=== PATIENT | female | born 1975 | race American Indian/Alaskan Native ===

== ENCOUNTER 2017-05-06 03:49 | Emergency (ER) | payer SELFPAY ==
[2017-05-06 04:40] LABS: Bilirubin,Urine NEG (Negative); Blood,Urine MOD (Negative); Color,Urine Yellow (Yellow); HCG Qualitative,Urine Negative (Negative); Mucus,Urine FEW /HPF; Protein,Urine <15 mg/dL mg/dL (Negative); Urobilinogen,Urine < 2.0 mg/dL (<2.0)
--- NOTE | 2017-05-06 07:01 | Cat Scan Report ---
FINAL REPORT EXAM: CT HEAD/BRAIN WO CON HISTORY: MANNING w/ h/o HTN TECHNIQUE: Routine axial imaging was obtained of the brain without IV contrast. FINDINGS: There is acute subarachnoid blood in the basal cisterns and to lesser extent in the sylvian fissures. There is no parenchymal hemorrhage. There is developing obstructive hydrocephalus with dilatation of both temporal horns. There is a small amount of blood in the 4th ventricle. The visualized sinuses are clear. The mastoid air cells are well pneumatized. The calvarium appears intact. IMPRESSION: Acute subarachnoid hemorrhage with blood noted particularly in the basal cisterns, 4th ventricle and to lesser extent in the sylvian fissures. 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 Developing obstructive hydrocephalus as described.
[2017-05-06] MEDS ORDERED: KEPPRA 1,000 MG/NS 0.75% 100ML 1,000 MG/100 ML BAG IV ONE (07:04)
[2017-05-06] MEDS ORDERED: ZOFRAN IV ONE (07:05)
--- NOTE | 2017-05-06 07:16 | Emergency Department Report ---
ED Headache HPI - General Chief Complaint: Headache Stated Complaint: HEADACHE,NECK,BACK PAIN Time Seen by Provider: 05/06/17 07:00 Source: patient Exam Limitations: no limitations - History of Present Illness Initial Comments: 42-year-old female with a past medical history hypertension noncompliant with meds 1 year presents to the hospital complaining of sudden onset of headache that started at 10 AM yesterday. Pain is in the back of the head and neck rated 12/10 on onset and constant. Aggravated by light. Positive associated neck pain that hurts with movement. Positive nausea with vomiting. No blurred vision, focal weakness, focal numbness. She is taking Aleve as needed for pain but denies use of aspirin or anticoagulants. Allergies/Adverse Reactions: Allergies ibuprofen Allergy (Verified 05/06/17 04:09) Anaphylaxis ED Review of Systems ROS: Stated complaint: HEADACHE,NECK,BACK PAIN Other details as noted in HPI Comment: All other systems reviewed and negative Other: Constitutional: No fevers chills Eyes: Denies blurred vision ENT: No ear pain or throat pain Neck:as per hpi Respiratory: Denies cough wheezing shortness of breath Cardiovascular: Denies chest pain, palpitations, syncope GI: Denies abdominal pain, diarrhea : Denies dysuria Musculoskeletal: Denies back pain, joint swelling Skin: Denies rash, lesions, erythema Neurologic: Denies numbness, weakness Psychiatric: Denies suicidal ideation, hallucinations ED Past Medical Hx - Past Medical History Previous Medical History?: No Hx Hypertension: Yes - Surgical History Past Surgical History?: Yes Additional Surgical History: x1 - Social History Smoking Status: Current Every Day Smoker Substance Use Type: None ED Physical Exam - General Limitations: No Limitations - Other Other exam information: General: No limitations, patient is alert in no acute distress Head exam: Atraumatic, normocephalic Eyes exam: Normal appearance, pupils equal reactive to light, extraocular movements intact ENT: Moist mucous membrane, normal oropharynx Neck exam: Normal inspection, full range of motion, tender neck to palpation without rigidity Respiratory exam: Clear to auscultation bilateral, no wheezes, rales, crackles Cardiovascular: Normal rate and rhythm, normal heart sounds Abdomen: Soft, nondistended, and nontender, with normal bowel sounds, no rebound, or guarding Extremity: Full range of motion normal inspection no deformity Back: Normal Inspection, full range of motion, no tenderness Neurologic: Alert, oriented x3, cranial nerves intact, no motor or sensory deficit. GSC 15 Psychiatric: normal affect, normal mood Skin: Warm, dry, intact ED Course Vital Signs 05/06/17 03:51 Temperature 98.4 F Pulse Rate 79 Respiratory 18 Rate Blood Pressure 154/83 O2 Sat by Pulse 95 Oximetry - Consultations Consultation #1: 05/06/17 07:17 case d/w [facility] transfer service awaiting neurosurgeon call back 05/06/17 07:[address] Rider neurosurgeon at [facility] also sheet layer on conference call as well. Recommendations: Amicar 5 g sbp < 150 agree with [facility] ED Medical Decision Making - Radiology Data Radiology results: report reviewed Read by radiologist Acute subarachnoid hemorrhage is blood noted particularly in the basal cisterna' s, fourth ventricle and to lesser extent in the sylvian fissures. 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 Developing obstructive hydrocephalus with dilatation of both temporal horns and a small amount of blood and a fourth ventricle - Medical Decision Making MANNING/SAH Patient treated Amicar, morphine, and Zofran Cardene initiated to maintain systolic blood pressure less than 150 Keppra for seizure prophylaxis Accepted by Dr. Rider neurosurgeon at [facility] as well as neuro intensive Patient's friend and son at bedside and informed He also voices understanding of diagnosis and need for transfer - Differential Diagnosis CVA, ICH, SAH, hypertensive headache Critical Care Time: Yes Critical care time in (mins) excluding proc time.: 35 Critical care attestation.: If time is entered above; I have spent that time in minutes in the direct care of this critically ill patient, excluding procedure time. ED Disposition Clinical Impression: SAH (subarachnoid hemorrhage), HTN (hypertension) Disposition: DC/TX-70 ANOTHER TYPE HLTHCARE Is pt being admited?: No Does the pt Need Aspirin: No Condition: Stable Time of Disposition: 07:31 (accepted by [facility] and awaiting bed assignment) - Assessment Assessment Interval: Baseline - Level of Consciousness 1a. Level of Consciousness: alert - LOC Questions 1b. LOC Questions: answers correctly - LOC Command 1c. LOC Commands: performs tasks correctly - Best Gaze 2. Best Gaze: normal - Visual 3. Visual: no visual loss - Facial Palsy 4. Facial Palsy: normal symmetrical movement - Motor Arm 5b. Motor Arm Right: no drift 5a. Motor Arm Left: no drift - Motor Leg 6a. Motor Leg Left: no drift 6b. Motor Leg Right: no drift - Limb Ataxia 7. Limb Ataxia: absent - Sensory 8. Sensory: normal - Best Language 9. Best Language: no aphasia - Dysarthria 10. Dysarthria: normal - Extinction and Inattention 11. Extinction/Inattention: no abnormality - Scoring Total Score: 0 Stroke Severity: No Stroke Symptoms
[2017-05-06] MEDS ORDERED: MORPHINE IV ONE (07:18)
[2017-05-06 07:36] LABS: Basophils % (Auto) 0.5 % (0.0-1.8); Eosinophils # (Auto) 0.1 K/mm3 (0.0-0.4); Eosinophils % (Auto) 0.7 % (0.0-4.3); Hematocrit 42.2 % (30.3-42.9); Hemoglobin 14.3 gm/dl (10.1-14.3); Lymphocytes # (Auto) 1.5 K/mm3 (1.2-5.4); Lymphocytes % (Auto) 16.6 % (13.4-35.0); Mean Corpuscular HGB Conc 34 % (30-34); Mean Corpuscular Hemoglobin 30 pg (28-32); Mean Corpuscular Volume 87 fl (79-97); Monocytes # (Auto) 0.5 K/mm3 (0.0-0.8); Monocytes % (Auto) 5.6 % (0.0-7.3); Platelet Count 267 K/mm3 (140-440); Red Blood Count 4.84 M/mm3 (3.65-5.03); Red Cell Distribution Width 14.5 % (13.2-15.2)
[2017-05-06 07:50] LABS: BUN/Creatinine Ratio 14; Blood Urea Nitrogen 10 mg/dL (7-17); Calcium 9.3 mg/dL (8.4-10.2); Hemolysis Index 52
[2017-05-06 07:51] LABS: INR 0.95 (0.87-1.13)
[2017-05-06 07:52] LABS: Partial Thromboplastin Time 30.3 Sec. (24.2-36.6)
[2017-05-06] MEDS ORDERED: AMICAR 5,000 MG in NACL 0.9% 100 ML IV ONE (08:00)
[2017-05-06] MEDS ORDERED: CARDENE 50 MG in NACL 0.9% 250ML 230 ML IV SCH (08:00)
[2017-05-06 08:40] VITALS: BP 165/76
== END 2017-05-06 09:07 | disposition other institution (70) ==
LOC: ED 03:49
DX: I60.9 Nontraumatic subarachnoid hemorrhage, unspecified (principal); I10 Essential (primary) hypertension; F17.200 Nicotine dependence, unspecified, uncomplicated
CPT/HCPCS: 36415; 70450; 80048; 81001; 81025; 84703; 85025; 85610; 85730; 86850; 86900; 86901; 87086; 96365; 96368; 96375; 99291; J1953; J2270; J2405; J7050

== ENCOUNTER 2017-07-18 16:23 | Emergency (ER) | payer MEDICAID, OTHER ==
[2017-07-18 16:59] VITALS: BP 173/93
--- NOTE | 2017-07-18 23:08 | Emergency Department Report ---
ED Headache HPI - General Chief Complaint: Headache Stated Complaint: HEADACHE Time Seen by Provider: 07/18/17 22:44 Source: patient - History of Present Illness Initial Comments: Mrs. Wood is a very pleasant 42-year-old female with history of hypertension. In May she was diagnosed in our ER with subarachnoid hemorrhage. She was transferred to [facility]. She was hospitalized for one month. She did have a surgical intervention. Follow-up scheduled on with Neurosurgeon, she required Percocet initially for headaches. She used all the Percocent prescribed to her. Normally Tylenol resolves her headache. However she has more persistent headache since last night. Tylenol did not relieve her headache. Headache is intermittent posterior throbbing. A little bit more persistent than previous headaches. Moderate in severity. Timing/Duration: 24 hours Quality: severe Head Injury Location: occipital Recent Head Trauma: other (In May diagnosed subarachnoid hemorrhage transferred to [place]) Associated Symptoms: denies symptoms Allergies/Adverse Reactions: Allergies ibuprofen Allergy (Verified 05/06/17 04:09) Anaphylaxis ED Review of Systems ROS: Stated complaint: HEADACHE Other details as noted in HPI Comment: All other systems reviewed and negative Constitutional: denies: chills ENT: denies: throat pain Respiratory: denies: cough Cardiovascular: denies: chest pain ED Past Medical Hx - Past Medical History Hx Hypertension: Yes Additional medical history: brain bleed - Surgical History Additional Surgical History: x1 - Social History Smoking Status: Never Smoker Substance Use Type: None ED Physical Exam - General Limitations: No Limitations General appearance: alert, in no apparent distress - Head Head exam: Present: atraumatic, normocephalic - Eye Eye exam: Present: normal appearance - ENT ENT exam: Present: mucous membranes moist - Neck Neck exam: Present: normal inspection - Respiratory Respiratory exam: Present: normal lung sounds bilaterally. Absent: respiratory distress, wheezes, rales, rhonchi - Cardiovascular Cardiovascular Exam: Present: regular rate, normal rhythm, normal heart sounds. Absent: systolic murmur, diastolic murmur, rubs, gallop - GI/Abdominal GI/Abdominal exam: Present: soft, normal bowel sounds. Absent: distended, tenderness, guarding, rebound - Extremities Exam Extremities exam: Present: normal inspection - Back Exam Back exam: Present: normal inspection - Neurological Exam Neurological exam: Present: alert, oriented X3, CN II-XII intact, normal gait. Absent: motor sensory deficit - Psychiatric Psychiatric exam: Present: normal affect, normal mood - Skin Skin exam: Present: warm, dry, intact, normal color. Absent: rash ED Course Vital Signs 07/18/17 16:56 Temperature 98 F Pulse Rate 82 Respiratory 16 Rate Blood Pressure 173/93 O2 Sat by Pulse 96 Oximetry ED Medical Decision Making - Medical Decision Making Mrs. Wood presents with headache after SAH and neurosurgical procedure 2 months ago. She appears well. Understandably she is extremely frustrated that she waited 8 hours in the ED. Regarding CT head images, the images were unable to be sent to to our radiology staff in order to be read. I reviewed the images. I do not see any gross blood. She elected to leave AGAINST MEDICAL ADVICE prior to an official read by radiology. She understandably declined repeat head CT. She is neurologically intact. She has decision-making capability to decline further care.. Critical care attestation.: If time is entered above; I have spent that time in minutes in the direct care of this critically ill patient, excluding procedure time. ED Disposition Clinical Impression: Headache, History of subarachnoid hemorrhage Disposition: - LEFT AGAINST MED ADVICE Is pt being admited?: No Does the pt Need Aspirin: No Condition: Stable Referrals: PRIMARY CARE, [Primary Care Provider] - 3-5 Days Forms: AMA Form Time of Disposition: 00:57
--- NOTE | 2017-07-21 09:21 | Cat Scan Report ---
FINAL REPORT EXAM: CT HEAD/BRAIN WO CON HISTORY: headache COMPARISON: CT of the head performed on 05/06/2017 TECHNIQUE: Multiple contiguous axial images were obtained from the skullbase to the vertex without administration of IV contrast. FINDINGS: There is a tract in the right frontal lobe from prior frontal approach ventricular catheter placement. There is no parenchymal hemorrhage or extra-axial fluid collection. There is no mass or mass effect. There is no acute territorial infarct. The ventricles are midline and are not enlarged. Subarachnoid spaces and basilar cisterns are clear. There is no skull fracture. The paranasal sinuses and mastoid air cells are clear. The bilateral orbits are intact. IMPRESSION: No acute intracranial abnormality.
== END 2017-07-19 00:59 | disposition left against medical advice (07) ==
LOC: ED 16:23
DX: R51 Headache (principal); I10 Essential (primary) hypertension
CPT/HCPCS: 70450

== ENCOUNTER 2018-04-20 13:30 | Emergency (ER) | payer MEDICAID ==
[2018-04-20 14:01] VITALS: BP 118/70
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
[2018-04-20 16:17] LABS: Basophils % (Auto) 0.3 % (0.0-1.8); Eosinophils # (Auto) 0.1 K/mm3 (0.0-0.4); Eosinophils % (Auto) 0.9 % (0.0-4.3); Hematocrit 35.6 % (30.3-42.9); Hemoglobin 11.7 gm/dl (10.1-14.3); Lymphocytes # (Auto) 2.7 K/mm3 (1.2-5.4); Lymphocytes % (Auto) 38.2 % (13.4-35.0); Mean Corpuscular HGB Conc 33 % (30-34); Mean Corpuscular Volume 83 fl (79-97); Monocytes # (Auto) 0.5 K/mm3 (0.0-0.8); Monocytes % (Auto) 7.2 % (0.0-7.3); Platelet Count 323 K/mm3 (140-440); Red Blood Count 4.28 M/mm3 (3.65-5.03); Red Cell Distribution Width 14.4 % (13.2-15.2)
[2018-04-20 16:23] LABS: BUN/Creatinine Ratio 24; Blood Urea Nitrogen 12 mg/dL (7-17); Calcium 9.2 mg/dL (8.4-10.2); Hemolysis Index 6
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
== END 2018-04-20 18:11 | disposition home or self-care (01) ==
LOC: ED 13:30
DX: T24.112A Burn of first degree of left thigh, initial encounter (principal); T24.111A Burn of first degree of right thigh, initial encounter; T21.12XA Burn of first degree of abdominal wall, initial encounter; T31.11 Burns involving 10-19% of body surface with 10-19% third degree burns; I10 Essential (primary) hypertension; Z88.6 Allergy status to analgesic agent; X12.XXXA Contact with other hot fluids, initial encounter; Y93.89 Activity, other specified; Y99.8 Other external cause status; Y92.89 Other specified places as the place of occurrence of the external cause
CPT/HCPCS: 36415; 80048; 85025; 99283

== ENCOUNTER 2018-04-25 16:26 | Emergency (ER) | payer MEDICAID ==
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
[2018-04-25 17:08] LABS: Bilirubin,Urine NEG (Negative); Blood,Urine MOD (Negative); Color,Urine Amber (Yellow); Mucus,Urine FEW /HPF; Urobilinogen,Urine < 2.0 mg/dL (<2.0)
[2018-04-25 17:09] LABS: HCG Qualitative,Urine Negative (Negative)
[2018-04-25 17:10] LABS: WBC,Urine > 182.0 /HPF (0.0-6.0)
[2018-04-25] MEDS ORDERED: NACL 0.9% 1000 ML 1,000 ML IV ONE (18:54)
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
[2018-04-25 20:12] VITALS: BP 123/77
== END 2018-04-25 20:13 | disposition home or self-care (01) ==
LOC: ED 16:26
DX: T21.22XA Burn of second degree of abdominal wall, initial encounter (principal); N30.90 Cystitis, unspecified without hematuria; I10 Essential (primary) hypertension; Z88.6 Allergy status to analgesic agent; Y92.89 Other specified places as the place of occurrence of the external cause
CPT/HCPCS: 81001; 81025; 99283

== ENCOUNTER 2018-05-09 16:02 | Emergency (ER) | payer MEDICAID ==
[2018-05-09] MEDS ORDERED: TYLENOL PO ONE (17:32)
--- NOTE | 2018-05-09 17:32 | Emergency Department Report ---
Chief Complaint: Headache Stated Complaint: FLU SYMPTOMS Time Seen by Provider: 05/09/18 17:31 - HPI History of Present Illness: chills aches weak back pain pmh k stones htn obese hpld gerd rx statin bp/hctz cig none etoh non drugs none no flu shot this year mse completed MSE screening note: Focused history and physical exam performed. Due to findings the following was ordered: ED Disposition for MSE Condition: Stable
[2018-05-09] MEDS ORDERED: TYLENOL ONE (17:36)
[2018-05-09 18:08] LABS: Bacteria,Urine 2+ /HPF (Negative); Bilirubin,Urine NEG (Negative); Blood,Urine MOD (Negative); Color,Urine Yellow (Yellow); Mucus,Urine FEW /HPF; Urobilinogen,Urine < 2.0 mg/dL (<2.0)
[2018-05-09 18:10] LABS: WBC,Urine > 182.0 /HPF (0.0-6.0)
[2018-05-09 18:11] LABS: HCG Qualitative,Urine Negative (Negative)
[2018-05-09 18:29] LABS: Hematocrit 32.4 % (30.3-42.9); Hemoglobin 10.8 gm/dl (10.1-14.3); Mean Corpuscular HGB Conc 33 % (30-34); Mean Corpuscular Volume 81 fl (79-97); Platelet Count 382 K/mm3 (140-440); Red Cell Distribution Width 14.4 % (13.2-15.2)
[2018-05-09 18:37] LABS: BUN/Creatinine Ratio 10; Blood Urea Nitrogen 6 mg/dL (7-17); Calcium 9.3 mg/dL (8.4-10.2); Hemolysis Index 0
[2018-05-09] MEDS ORDERED: ZOFRAN IV ONE (20:59)
[2018-05-09] MEDS ORDERED: MORPHINE IV ONE (20:59)
--- NOTE | 2018-05-09 21:00 | Emergency Department Report ---
ED General Adult HPI - General Chief complaint: Headache Stated complaint: FLU SYMPTOMS Time Seen by Provider: 05/09/18 17:31 Source: patient, family Mode of arrival: Ambulatory Limitations: No Limitations - History of Present Illness Initial comments: Pt is a 43 yo female who presents with c/o dysuria that began this morning. She has associated bilateral lower back pain, suprapubic pressure, fever, and nausea. The patient states she was evaluated in the ED for similar sx and was diagnosed with a UTI on 04/25 and treated with keflex. She states she completed the medication as prescribed. The patient denies any emesis. She is able to tolerate PO intake. She has a hx of kidney stones in 2012 but did not see a urologist. Severity scale (0 -10): 8 - Related Data Previous Rx's Medication Instructions Recorded Last Taken Type Ciprofloxacin HCl [Ciprofloxacin 500 mg PO BID 7 Days #14 tablet 05/10/18 Unknown Rx TAB] Phenazopyridine [Pyridium] 100 mg PO TID #9 tab 05/10/18 Unknown Rx Promethazine [Phenergan TAB] 25 mg PO Q8HR PRN #14 tab 05/10/18 Unknown Rx Allergies Allergy/AdvReac Type Severity Reaction Status Date / Time ibuprofen Allergy Anaphylaxis Verified 05/06/17 04:09 ED Review of Systems ROS: Stated complaint: FLU SYMPTOMS Other details as noted in HPI Comment: All other systems reviewed and negative ED Past Medical Hx - Past Medical History Previous Medical History?: Yes Hx Hypertension: Yes Additional medical history: brain bleed - Surgical History Past Surgical History?: Yes Additional Surgical History: x1 - Social History Smoking Status: Never Smoker - Medications Home Medications: Home Medications Medication Instructions Recorded Confirmed Last Taken Type Ciprofloxacin HCl [Ciprofloxacin 500 mg PO BID 7 Days #14 tablet 05/10/18 Unknown Rx TAB] Phenazopyridine [Pyridium] 100 mg PO TID #9 tab 05/10/18 Unknown Rx Promethazine [Phenergan TAB] 25 mg PO Q8HR PRN #14 tab 05/10/18 Unknown Rx ED Physical Exam - General Limitations: No Limitations General appearance: alert, in no apparent distress - Head Head exam: Present: atraumatic, normocephalic - Eye Eye exam: Present: normal appearance - ENT ENT exam: Present: mucous membranes moist - Respiratory Respiratory exam: Present: normal lung sounds bilaterally. Absent: respiratory distress, wheezes, rales, rhonchi, stridor, chest wall tenderness, accessory muscle use, decreased breath sounds - Cardiovascular Cardiovascular Exam: Present: regular rate, normal rhythm, normal heart sounds. Absent: systolic murmur, rubs, gallop - GI/Abdominal GI/Abdominal exam: Present: soft, normal bowel sounds. Absent: distended, tenderness, guarding, rebound, rigid - Back Exam Back exam: Present: CVA tenderness (R), CVA tenderness (L) - Neurological Exam Neurological exam: Present: alert, oriented X3 - Psychiatric Psychiatric exam: Present: normal affect, normal mood - Skin Skin exam: Present: warm, dry, intact ED Course Vital Signs 05/09/18 05/09/18 05/10/18 17:31 21:38 00:32 Temperature 101.8 F H 98.9 F Pulse Rate 73 89 Respiratory 16 18 16 Rate Blood Pressure 105/60 Blood Pressure 138/68 [Left] O2 Sat by Pulse 98 100 Oximetry ED Medical Decision Making - Lab Data Result diagrams: 05/09/18 18:10 05/09/18 18:10 Laboratory Results - last 24 hr 05/09/18 05/09/18 05/09/18 17:37 17:45 18:10 WBC 11.0 RBC 4.00 Hgb 10.8 Hct 32.4 MCV 81 MCH 27 L MCHC 33 RDW 14.4 Plt Count 382 Sodium Potassium Chloride Carbon Dioxide Anion Gap BUN Creatinine Estimated GFR BUN/Creatinine Ratio Glucose Calcium Urine Color Yellow Urine Turbidity Cloudy Urine pH 6.0 Ur Specific [place] 1.012 Urine Protein 100 mg/dl Urine Glucose (UA) Neg Urine Ketones Tr Urine Blood Mod Urine Nitrite Neg Urine Bilirubin Neg Urine Urobilinogen < 2.0 Ur Leukocyte Esterase Lg Urine WBC (Auto) > 182.0 H Urine RBC (Auto) 8.0 U Epithel Cells (Auto) 15.0 H Urine Bacteria (Auto) 2+ Urine WBC Clumps 2+ Urine Mucus Few Urine HCG, Qual Negative Influenza A (Rapid) Negative Influenza B (Rapid) Negative 05/09/18 18:10 WBC RBC Hgb Hct MCV MCH MCHC RDW Plt Count Sodium 139 Potassium 3.3 L Chloride 97.8 L Carbon Dioxide 27 Anion Gap 18 BUN 6 L Creatinine 0.6 L Estimated GFR > 60 BUN/Creatinine Ratio 10 Glucose 125 H Calcium 9.3 Urine Color Urine Turbidity Urine pH Ur Specific [place] Urine Protein Urine Glucose (UA) Urine Ketones Urine Blood Urine Nitrite Urine Bilirubin Urine Urobilinogen Ur Leukocyte Esterase Urine WBC (Auto) Urine RBC (Auto) U Epithel Cells (Auto) Urine Bacteria (Auto) Urine WBC Clumps Urine Mucus Urine HCG, Qual Influenza A (Rapid) Influenza B (Rapid) - Radiology Data Radiology results: report reviewed PROCEDURE: CT ABDOMEN PELVIS WO CON TECHNIQUE: Computerized axial tomography of the abdomen and pelvis was performed without intravenous contrast. This study is performed without intravascular contrast material and its sensitivity for abdominal and pelvic pathology, including neoplasms, inflammation, abscess, free fluid, thrombosis, arterial dissection and infarction, is reduced compared with a contrast enhanced study. CT DOSE LENGTH PRODUCT: mGycm HISTORY: bilateral flank pain COMPARISONS: None . FINDINGS: Visualized lower thorax: No significant abnormality. Liver: Normal size and attenuation. Spleen: Normal size and attenuation. Gallbladder and biliary system: There is cholelithiasis. There are no signs of cholecystitis. There is no biliary ductal dilatation.. Pancreas: Normal. Adrenals: Normal. Kidneys: There are tiny bilateral kidney stones. There are no ureteral stones. There is no hydronephrosis. There is right perinephric induration which could be evidence of UTI.. GI tract: There is no bowel obstruction, colitis or enteritis. The appendix is normal. . Lymph nodes and mesentery: Normal. Vasculature: Normal.. Bladder: Normal. Reproductive organs: Uterus is prominent.. There are probable fibroids. Peritoneum: There is no ascites, free air, abscess or adenopathy.. Musculoskeletal structures: No significant abnormality. IMPRESSION: There is cholelithiasis. There are no signs of cholecystitis. There is no biliary ductal dilatation. There are tiny bilateral kidney stones. There are no ureteral stones. There is no hydronephrosis. There is right perinephric induration which could be evidence of UTI. There is no bowel obstruction, colitis or enteritis. The appendix is normal. Uterus is prominent.. There are probable fibroids. There is no ascites, free air, abscess or adenopathy.. This document is electronically signed by Edgar Islas MD., May 09 2018 11:53:13 PM ET - Medical Decision Making Pt is a 43 yo female who presents to the ED for dysuria, suprapubic pressure, fever, and bilateral flank pain. Urine with WBCs. CT abd/pelvis shows bilateral nonobstructing stones in the kidneys, cholelithiasis without cholecystitis, and right sided pyelonephritis. Pt is well appearing and able to tolerate PO intake. VSS. Pt is a candidate for outpatient pyelo tx. Will have pt follow up with urology and PCP in the next 2-3 days. Discussed specific instructions for return to ED if new or worsening symptoms. Critical care attestation.: If time is entered above; I have spent that time in minutes in the direct care of this critically ill patient, excluding procedure time. ED Disposition Clinical Impression: Pyelonephritis, Nephrolithiasis Cholelithiasis Qualifiers: Cholelithiasis location: gallbladder Cholecystitis presence: without cholecystitis Biliary obstruction: without biliary obstruction Qualified Code(s): K80.20 - Calculus of gallbladder without cholecystitis without obstruction Disposition: TO HOME OR SELFCARE Is pt being admited?: No Does the pt Need Aspirin: No Condition: Stable Instructions: Cholelithiasis (ED), Kidney Stones (ED), Acute Pyelonephritis (ED) Additional Instructions: Follow up with primary care doctor in the next 2-3 days. Follow up with urology for kidney stones. If any new or worsening symptoms return to the emergency room. Prescriptions: Ciprofloxacin HCl [Ciprofloxacin TAB] 500 mg PO BID 7 Days #14 tablet Promethazine [Phenergan TAB] 25 mg PO Q8HR PRN #14 tab PRN Reason: Nausea Phenazopyridine [Pyridium] 100 mg PO TID #9 tab Referrals: OFELIA LEMA [Primary Care Provider] - 3-5 Days TOMY PARK MD [Staff Physician] - 3-5 Days Time of Disposition: 00:02 Print Language: CITIZEN OF [place]
[2018-05-09] MEDS ORDERED: ROCEPHIN/NS 1 GM/50 ML 1 GM/50 ML BAG IV ONE (21:02)
--- NOTE | 2018-05-09 23:55 | Cat Scan Report ---
PROCEDURE: CT ABDOMEN PELVIS WO CON TECHNIQUE: Computerized axial tomography of the abdomen and pelvis was performed without intravenous contrast. This study is performed without intravascular contrast material and its sensitivity for ab dominal and pelvic pathology, including neoplasms, inflammation, abscess, free fluid, thrombosis, art erial dissection and infarction, is reduced compared with a contrast enhanced study. CT DOSE LENGTH PRODUCT: mGycm HISTORY: bilateral flank pain COMPARISONS: None . FINDINGS: Visualized lower thorax: No significant abnormality. Liver: Normal size and attenuation. Spleen: Normal size and attenuation. Gallbladder and biliary system: There is cholelithiasis. There are no signs of cholecystitis. There i s no biliary ductal dilatation.. Pancreas: Normal. Adrenals: Normal. Kidneys: There are tiny bilateral kidney stones. There are no ureteral stones. There is no hydronephr osis. There is right perinephric induration which could be evidence of UTI.. GI tract: There is no bowel obstruction, colitis or enteritis. The appendix is normal. . Lymph nodes and mesentery: Normal. Vasculature: Normal.. Bladder: Normal. Reproductive organs: Uterus is prominent.. There are probable fibroids. Peritoneum: There is no ascites, free air, abscess or adenopathy.. Musculoskeletal structures: No significant abnormality. IMPRESSION: There is cholelithiasis. There are no signs of cholecystitis. There is no biliary ductal dilatation. There are tiny bilateral kidney stones. There are no ureteral stones. There is no hydronephrosis. The re is right perinephric induration which could be evidence of UTI. There is no bowel obstruction, colitis or enteritis. The appendix is normal. Uterus is prominent.. There are probable fibroids. There is no ascites, free air, abscess or adenopathy.. This document is electronically signed by Edgar Islas MD., May 09 2018 11:53:13 PM ET
[2018-05-10 00:33] VITALS: BP 138/68
== END 2018-05-10 00:32 | disposition home or self-care (01) ==
LOC: ED 16:02
DX: N12 Tubulo-interstitial nephritis, not specified as acute or chronic (principal); N20.0 Calculus of kidney; K80.20 Calculus of gallbladder without cholecystitis without obstruction; I10 Essential (primary) hypertension; Z88.5 Allergy status to narcotic agent
CPT/HCPCS: 36415; 74176; 80048; 81001; 81025; 85027; 87400; 96365; 96375; 99284; J0696; J2270; J2405

== ENCOUNTER 2018-05-18 11:34 | Outpatient (CLI) | payer MEDICAID ==
[2018-05-18 12:28] LABS: Bilirubin,Urine NEG (Negative); Blood,Urine NEG (Negative); Color,Urine Straw (Yellow); Mucus,Urine FEW /HPF; Protein,Urine <15 mg/dL mg/dL (Negative); Urobilinogen,Urine < 2.0 mg/dL (<2.0)
== END 2018-05-18 11:35 | disposition home or self-care (01) ==
LOC: LAB 11:34
PROVIDERS: ATTEND Internal Medicine
DX: N39.0 Urinary tract infection, site not specified (principal); I10 Essential (primary) hypertension
CPT/HCPCS: 81001

== ENCOUNTER 2018-08-21 10:26 | Outpatient (CLI) | payer MEDICAID ==
[2018-08-21 11:10] LABS: Hematocrit 30.9 % (30.3-42.9); Hemoglobin 10.1 gm/dl (10.1-14.3); Mean Corpuscular HGB Conc 33 % (30-34); Mean Corpuscular Volume 76 fl (79-97); Platelet Count 364 K/mm3 (140-440); Red Blood Count 4.04 M/mm3 (3.65-5.03); Red Cell Distribution Width 15.4 % (13.2-15.2)
[2018-08-21 12:27] LABS: Alanine Aminotransferase 11 units/L (7-56); Albumin 4.5 g/dL (3.9-5); BUN/Creatinine Ratio 15; Blood Urea Nitrogen 9 mg/dL (7-17); Calcium 9.4 mg/dL (8.4-10.2); Chol/HDL Ratio 3.07 %; HDL Cholesterol 41 mg/dL (40-59); Hemolysis Index 3; LDL Cholesterol,Direct 73 mg/dL (50-130)
== END 2018-08-21 10:27 | disposition home or self-care (01) ==
LOC: LAB 10:26
PROVIDERS: ATTEND Internal Medicine
DX: Z13.220 Encounter for screening for lipoid disorders (principal); E78.00 Pure hypercholesterolemia, unspecified; R73.9 Hyperglycemia, unspecified; I10 Essential (primary) hypertension
CPT/HCPCS: 36415; 80053; 80061; 82607; 83036; 85027

== ENCOUNTER 2018-09-18 08:59 | Outpatient (CLI) | payer MEDICAID ==
--- NOTE | 2018-09-18 13:05 | Ultrasound Report ---
DIGITAL DIAGNOSTIC MAMMOGRAM 09/18/2018 RIGHT BREAST ULTRASOUND INDICATION: Questionable architectural distortion right breast upper outer quadrant posterior depth, questionable developing density middle depth central CC view on screening mammography TECHNIQUE: Digital right mammographic imaging was performed. Spot compression views were obtained. L imited ultrasound was performed. COMPARISON: Mammogram dated 02/11/2018 and 07/06/2015 FINDINGS: Breast Density: The breasts are heterogeneously dense, which may obscure small masses. The focal asymmetric density seen on screening mammography does not persist on additional imaging. Qu estionable architectural distortion in the posterior depth right upper outer quadrant does not persis t on spot compression views. Ultrasound Findings: Targeted sonographic evaluation was performed on the area of interest. Imaging w as performed through the right breast upper outer quadrant. In the area of questionable architectural distortion 10 to 11:00 position posterior depth, normal fib roglandular tissue is seen without cysts or solid nodules. Incidental note is made of a benign-appearing fat lobule in the 9:00 position measuring 3.5 cm. There is no suspicious mammographic correlate. This is considered a benign finding. An additional incidental finding of a complicated cyst versus solid nodule is noted in the 9:00 posit ion 6 cm from the nipple, posterior depth measuring 6 mm. There is no mammographic correlate. IMPRESSION: BI-RADS Category 3: Probably Benign. Return to routine screening mammography is recommended in one year. Six-month follow-up ultrasound is recommended to assure stability or resolution of the complic ated cyst versus solid nodule in the 9:00 position 6 cm from nipple. A "normal" or negative report should not discourage follow up or biopsy of a clinically significant f inding. A written summary of these findings will be mailed to the patient. The patient will be entered into a mammography reporting system which will generate a reminder letter for the patient's next appointmen t at the appropriate interval. According to the [employer], yearly mammograms are recommended starting at age 40 and continuing as long as a woman is in good health. Breast MRI is recommended for women with an jose m roximately 20-25% or greater lifetime risk of breast cancer, including women with a strong family his tory of breast or ovarian cancer and women who have been treated for Hodgkin's disease. Signer Name: Oneyda Tapia MD Signed: 09/18/2018 1:01 PM Workstation Name: [id number]
--- NOTE | 2018-09-18 16:46 | Ultrasound Report ---
Renal ultrasound INDICATION: Nephrolithiasis. Calculus of kidney FINDINGS: Both kidneys measure 12 cm in length without hydronephrosis. There are several small echoge kyle foci throughout both collecting systems consistent with tiny nonobstructive stones. Urinary bladd er is unremarkable IMPRESSION: Bilateral nephrolithiasis without hydronephrosis, as above. Signer Name: Tavo Richey MD Signed: 09/18/2018 4:42 PM Workstation Name: [id number]
== END 2018-09-18 09:00 | disposition home or self-care (01) ==
LOC: MAMMO 08:59
PROVIDERS: ATTEND Internal Medicine
DX: N20.0 Calculus of kidney (principal); R92.8 Other abnormal and inconclusive findings on diagnostic imaging of breast; I10 Essential (primary) hypertension
CPT/HCPCS: 76770

== ENCOUNTER 2018-12-22 10:59 | Emergency (ER) | payer MEDICAID, OTHER ==
--- NOTE | 2018-12-22 11:34 | Emergency Department Report ---
HPI - General Chief Complaint: Back Pain/Injury Time Seen by Provider: 12/22/18 11:17 - HPI HPI: Room 35 The patient is a 43-year-old female presenting with a chief complaint of right flank pain. Patient states she's had pain in the right flank. Past 1.5 days. Patient states the pain increases with movement. Patient describes the pain as sharp and constant in nature. Patient denies nausea/vomiting or dysuria. Patient denies hematuria or recent trauma. Patient denies history of fever. Patient states she's had this same pain in the past has been attributed to a "bulging disc" in her back Location: [See above] Duration: [See above] Quality: [See above] Severity: [See above] Timing: [See above] Context: [See above] Modifying factors: [See above] Associated signs and symptoms: [see above] ED Past Medical Hx - Past Medical History Previous Medical History?: Yes Hx Hypertension: Yes Additional medical history: brain bleed (2018). bulging disc - Surgical History Past Surgical History?: Yes Additional Surgical History: x1 - Family History Family history: no significant - Social History Smoking Status: Never Smoker Substance Use Type: None - Medications Home Medications: Home Medications Medication Instructions Recorded Confirmed Last Taken Type Ciprofloxacin HCl [Ciprofloxacin 500 mg PO BID 7 Days #14 tablet 05/10/18 Unknown Rx TAB] Phenazopyridine [Pyridium] 100 mg PO TID #9 tab 05/10/18 Unknown Rx Promethazine [Phenergan TAB] 25 mg PO Q8HR PRN #14 tab 05/10/18 Unknown Rx Cyclobenzaprine [Flexeril] 10 mg PO TID PRN #10 tablet 12/22/18 Unknown Rx HYDROcodone/APAP 5-325 [[place] 1 - 2 each PO Q6HR PRN #10 tablet 12/22/18 Unknown Rx 5/325] Sulfamethoxazole/Trimethoprim 1 each PO BID #6 tablet 12/22/18 Unknown Rx [Bactrim DS TAB] ED Review of Systems ROS: Stated complaint: BACK PAIN Other details as noted in HPI Constitutional: no symptoms reported Eyes: denies: eye pain ENT: denies: throat pain Respiratory: no symptoms reported Cardiovascular: denies: chest pain Endocrine: no symptoms reported Gastrointestinal: denies: nausea, vomiting Genitourinary: denies: dysuria, hematuria Musculoskeletal: back pain Neurological: denies: headache Physical Exam - Physical Exam Vital Signs: Vital Signs 12/22/18 11:03 Temperature 99.9 F H Pulse Rate 85 Respiratory 18 Rate Blood Pressure 135/67 O2 Sat by Pulse 93 Oximetry Physical Exam: GENERAL: The patient is well-developed well-nourished female sitting in chair not appearing to be in acute distress. [] HEENT: Normocephalic. Atraumatic. Extraocular motions are intact. Patient has moist mucous membranes. NECK: Supple. Trachea midline CHEST/LUNGS: Clear to auscultation. There is no respiratory distress noted. HEART/CARDIOVASCULAR: Regular. There is no tachycardia. There is no gallop rub or murmur. ABDOMEN: Abdomen is soft, nontender. Patient has normal bowel sounds. There is no abdominal distention. SKIN: There is no rash. There is no edema. There is no diaphoresis. NEURO: The patient is awake, alert, and oriented. The patient is cooperative. The patient has no focal neurologic deficits. The patient has normal speech MUSCULOSKELETAL: There is no evidence of acute injury. ED Course Vital Signs 12/22/18 11:03 Temperature 99.9 F H Pulse Rate 85 Respiratory 18 Rate Blood Pressure 135/67 O2 Sat by Pulse 93 Oximetry ED Medical Decision Making - Radiology Data Radiology results: report reviewed (CT abdomen and pelvis), image reviewed (CT abdomen and pelvis) - Differential Diagnosis lumbar radiculopathy, renal colic, pyelonephritis Critical care attestation.: If time is entered above; I have spent that time in minutes in the direct care of this critically ill patient, excluding procedure time. ED Disposition Clinical Impression: Right flank pain, UTI (urinary tract infection) Disposition: - TO HOME OR SELFCARE Is pt being admited?: No Does the pt Need Aspirin: No Condition: Stable Instructions: Back Pain (ED) Additional Instructions: Return to the emergency department should you develop worsening symptoms, inability to tolerate food or liquids, high fever or any other concerns Prescriptions: Sulfamethoxazole/Trimethoprim [Bactrim DS TAB] 1 each PO BID #6 tablet Cyclobenzaprine [Flexeril] 10 mg PO TID PRN #10 tablet PRN Reason: Muscle Spasm HYDROcodone/APAP 5-325 [[place] 5/325] 1 - 2 each PO Q6HR PRN #10 tablet PRN Reason: Pain Referrals: DICRISTINA,ROULA, MD [Primary Care Provider] - 3-5 Days DUNG PIPER MD [Staff Physician] - 3-5 Days Time of Disposition: 15:45
[2018-12-22 13:01] LABS: HCG Qualitative,Urine Negative (Negative)
[2018-12-22 13:04] LABS: Bilirubin,Urine NEG (Negative); Blood,Urine LG (Negative); Color,Urine Red (Yellow); Urobilinogen,Urine < 2.0 mg/dL (<2.0)
[2018-12-22 13:05] LABS: RBC,Urine > 182.0 /HPF (0.0-6.0)
--- NOTE | 2018-12-22 15:31 | Cat Scan Report ---
CT ABDOMEN AND PELVIS WITHOUT CONTRAST HISTORY: right flank pain COMPARISON: 05/09/2018 TECHNIQUE: Axial CT images were obtained through the abdomen and pelvis without IV contrast. Sagittal and coronal reformatted images. All CT scans at this location are performed using CT dose reduction for ALARA by means of automated exposure control. FINDINGS: CT ABDOMEN: Lung Bases: Clear. Liver: No significant abnormality. Biliary: Numerous tiny partially calcified stones are noted. No biliary dilatation or inflammation. Spleen: No significant abnormality. Unenlarged. Pancreas: No significant abnormality. Adrenals: No significant abnormality. Kidneys: Scattered bilateral renal calyceal stones are again 5, right greater than left. No ureteral stones or hydronephrosis. Lymphatics: No lymphadenopathy. Vasculature: No significant abnormality. Bowel/Peritoneum: No significant abnormality. No free air. No free fluid. The appendix is not confide ntly identified. CT PELVIS: : Normal bladder and distal ureters. The uterus is mildly enlarged with suggestion of uterine fibro ids. No adnexal abnormality. Osseous Structures: No significant abnormality. Additional Findings: None IMPRESSION: Bilateral nephrolithiasis, right greater than left. No ureteral stones or hydronephrosis. Cholelithiasis. Uterine fibroid disease. Signer Name: Johnnie Bush Jr, MD Signed: 12/22/2018 3:27 PM Workstation Name: [id number]
[2018-12-22 16:21] VITALS: BP 125/64
== END 2018-12-22 16:20 | disposition home or self-care (01) ==
LOC: ED 10:59
DX: N39.0 Urinary tract infection, site not specified (principal); I10 Essential (primary) hypertension; Z79.899 Other long term (current) drug therapy
CPT/HCPCS: 74176; 81001; 81025

== ENCOUNTER 2020-08-10 10:19 | Outpatient (CLI) | payer MEDICAID ==
--- NOTE | 2020-08-10 12:59 | Mammography Report ---
DIGITAL SCREENING MAMMOGRAM WITH CAD, 08/10/2020 CLINICAL INFORMATION / INDICATION: Routine screening TECHNIQUE: Digital bilateral 2D mammography was obtained in the craniocaudal and mediolateral obliqu e projections. This examination was interpreted with the benefit of Computer-Aided Detection analysis . COMPARISON: 02/11/2018 FINDINGS: Breast Density: The breasts are heterogeneously dense, which may obscure small masses. No dominant mass, suspicious calcifications, or architectural distortion in the left breast. A new ovoid 9 mm density is seen in the posterior depth of the right breast at 9:00, approximately 10 cm from the nipple. IMPRESSION: New right density Follow up recommendation: Right breast ultrasound BI-RADS Category 0: Incomplete. Needs additional imaging evaluation and/or prior mammograms for nasrin silveron. A "normal" or negative report should not discourage follow up or biopsy of a clinically significant f inding. A written summary of these findings will be mailed to the patient. The patient will be entered into a mammography reporting system which will generate a reminder letter for the patient's next appointmen t at the appropriate interval. The [employer] recommends yearly mammograms starting at age 40 and continuing as l munir as a woman is in good health. Breast MRI is recommended for women with an approximate 20-25% or greater lifetime risk of breast cancer, including women with a strong family history of breast or ova cristina cancer or who have been treated for Hodgkin's disease. Signer Name: Karlo Loja MD Signed: 08/10/2020 12:55 PM Workstation Name: [email or web address]
== END 2020-08-10 10:20 | disposition home or self-care (01) ==
LOC: MAMMO 10:19
PROVIDERS: ATTEND Internal Medicine
DX: Z12.31 Encounter for screening mammogram for malignant neoplasm of breast (principal)
CPT/HCPCS: 77067

== ENCOUNTER 2020-10-05 10:18 | Outpatient (CLI) | payer MEDICAID ==
--- NOTE | 2020-10-05 11:03 | Ultrasound Report ---
ULTRASOUND BREAST LEFT LIMITED, 10/05/2020 CLINICAL INFORMATION / INDICATION: Abnormal screening mammogram. Screening recall of the right breast for new density. TECHNIQUE: Targeted ultrasound evaluation was performed of the area of interest. COMPARISON: Screening mammogram, 08/10/2020 FINDINGS: Sonographic evaluation of the right breast demonstrates an oval circumscribed hypoechoic nodule at th e 9:00 position 10 cm from the nipple measuring 0.8 x 0.5 cm. There is no associated vascularity. Thi s corresponds to the density seen on the mammogram. Incidentally noted is a round mixed echogenic nodule at the 9:00 position 10 cm from the nipple measu ring 0.3 x 0.3 cm. There is no associated vascularity. No suspicious solid mass or shadowing is visualized. IMPRESSION: 1. Two circumscribed right breast nodules as described above which most likely represent mildly compl icated cysts. A six-month follow-up right breast ultrasound is recommended to confirm stability. Follow up recommendation: Short term follow up in 6 months. BI-RADS Category 3: Probably Benign. Followup in 6 months. A normal or "negative" report should not preclude biopsy or follow-up of a clinically suspicious find ing. Signer Name: Lyly Haile MD Signed: 10/05/2020 10:58 AM Workstation Name: [id number]
== END 2020-10-05 10:19 | disposition home or self-care (01) ==
LOC: US 10:18
PROVIDERS: ATTEND Internal Medicine
DX: N63.11 Unspecified lump in the right breast, upper outer quadrant (principal)

== ENCOUNTER 2021-11-29 11:06 | Outpatient (CLI) | payer MEDICAID ==
--- NOTE | 2021-11-29 14:50 | XRay Report ---
XR spine lumbosacral 2-3V INDICATION / CLINICAL INFORMATION: CHRONIC PAIN. COMPARISON: None available. FINDINGS: BONES/JOINT(S): No acute fracture or subluxation. Mild generalized spondylosis. No focal bone erosion s or focal osteopenia to suggest inflammatory arthropathy. SOFT TISSUES: No significant abnormality. ADDITIONAL FINDINGS: None. Signer Name: Yeyo More MD Signed: 11/29/2021 2:46 PM Workstation Name: [id number]
--- NOTE | 2021-12-02 14:43 | Mammography Report ---
DIGITAL SCREENING MAMMOGRAM WITH CAD, 11/29/2021 CLINICAL INFORMATION / INDICATION: Routine screening mammography. TECHNIQUE: Digital bilateral 2D mammography was obtained in the craniocaudal and mediolateral oblique projections. This examination was interpreted with the benefit of Computer-Aided Detection analysis. COMPARISON: 02/11/2018 through 08/10/2020. FINDINGS: Breast Density: There are scattered areas of fibroglandular density. No dominant mass, suspicious calcifications, or architectural distortion in either breast. IMPRESSION: No mammographic evidence of malignancy. Follow up recommendation: Routine yearly screening mammogram. BI-RADS Category 1: NEGATIVE A "normal" or negative report should not discourage follow up or biopsy of a clinically significant f inding. A written summary of these findings will be mailed to the patient. The patient will be entered into a mammography reporting system which will generate a reminder letter for the patient's next appointmen t at the appropriate interval. The [employer] recommends yearly mammograms starting at age 40 and continuing as l munir as a woman is in good health. Breast MRI is recommended for women with an approximate 20-25% or greater lifetime risk of breast cancer, including women with a strong family history of breast or ova cristina cancer or who have been treated for Hodgkin's disease. Signer Name: Yefri Magallanes MD Signed: 12/02/2021 2:39 PM Workstation Name: [id number]
== END 2021-11-29 11:07 | disposition home or self-care (01) ==
LOC: MAMMO 11:06
PROVIDERS: ATTEND Internal Medicine
DX: Z12.31 Encounter for screening mammogram for malignant neoplasm of breast (principal); M47.817 Spondylosis without myelopathy or radiculopathy, lumbosacral region; G89.29 Other chronic pain
CPT/HCPCS: 72100; 77067